=== PATIENT | female | born 2000 | race Caucasian/White ===

== ENCOUNTER 2021-04-11 18:01 | Emergency (ER) | payer OTHER | END 2021-04-11 20:37 | disposition home or self-care (01) | LOC: ER1 18:01 | DX: O36.8120 Decreased fetal movements, second trimester, not applicable or unspecified (principal); Z3A.18 18 weeks gestation of pregnancy; Z79.899 Other long term (current) drug therapy; Z88.0 Allergy status to penicillin; Z88.1 Allergy status to other antibiotic agents | CPT/HCPCS: 99283 ==

== ENCOUNTER 2021-08-05 11:29 | Emergency (ER) | payer OTHER ==
[2021-08-05 12:24] LABS: HEMOGLOBIN 11.8 gm/dl (12.3-15.3); RED BLOOD COUNT 4.11 M/UL (4.00-5.10); WHITE BLOOD COUNT 8.2 K/UL (4.5-11.0)
[2021-08-05 12:41] LABS: BUN/CREATININE RATIO 8 (0-10)
[2021-08-05] MEDS ORDERED: MACROBID 100 M100 M1 PO (13:06)
== END 2021-08-05 15:30 | disposition home or self-care (01) ==
LOC: ER1 11:29
PROVIDERS: Physician Assistant
DX: Z23 Encounter for immunization (principal); U07.1 COVID-19; Z88.1 Allergy status to other antibiotic agents
CPT/HCPCS: 80053; 81001; 85025; 87086; 99283; M0243

== ENCOUNTER 2021-09-19 18:21 | Inpatient (IN) | payer OTHER ==
[~2021-09-19 18:21] MED LIST: MACROBID 100 M100 M1 PO
[2021-09-19 19:45] LABS: RED BLOOD COUNT 3.61 M/UL (4.00-5.10); WHITE BLOOD COUNT 12.8 K/UL (4.5-11.0)
[2021-09-21 07:29] LABS: HEMOGLOBIN 9.6 gm/dl (12.3-15.3)
[2021-09-21] MEDS ORDERED: DOCUSATE SODIU100 MG PO (09:05)
[2021-09-21] MEDS ORDERED: FERROUS SULFAT325 MG PO (09:05)
[2021-09-21] MEDS ORDERED: IBUPROFEN600 MG PO (09:05)
== END 2021-09-21 17:39 | disposition home or self-care (01) | DRG 806 ==
LOC: OB 18:21 → CDU 18:21 → OB 18:41
PROVIDERS: Obstetrics & Gynecology; ADMIT Obstetrics & Gynecology
PROC: 3E033VJ Introduction of Other Hormone into Peripheral Vein, Percutaneous Approach (ICD-10-PCS; 2021-09-19)
PROC: 10907ZC Drainage of Amniotic Fluid, Therapeutic from Products of Conception, Via Natural or Artificial Opening (ICD-10-PCS; 2021-09-19)
PROC: 4A1HXCZ Monitoring of Products of Conception, Cardiac Rate, External Approach (ICD-10-PCS; 2021-09-19)
PROC: 10E0XZZ Delivery of Products of Conception, External Approach (ICD-10-PCS; principal; 2021-09-20)
PROC: 0U7C7ZZ Dilation of Cervix, Via Natural or Artificial Opening (ICD-10-PCS; 2021-09-20)
PROC: 0HQ9XZZ Repair Perineum Skin, External Approach (ICD-10-PCS; 2021-09-20)
DX: O13.4 Gestational [pregnancy-induced] hypertension without significant proteinuria, complicating childbirth (principal); D62 Acute posthemorrhagic anemia; Z37.0 Single live birth; O76 Abnormality in fetal heart rate and rhythm complicating labor and delivery; Z3A.40 40 weeks gestation of pregnancy; Z20.822 Contact with and (suspected) exposure to COVID-19; O90.81 Anemia of the puerperium; O70.0 First degree perineal laceration during delivery
CPT/HCPCS: 36415; 51702; 81001; 85014; 85018; 85025; J2405; J2590